=== PATIENT | male | born 1995 | race Caucasian/White ===

== ENCOUNTER → 2024-05-31 | Outpatient (CLI) | payer BC, SELFPAY ==
[2024-05-31 11:19] LABS: Collection Type, Urine Clean Catch; Squamous Epithelial Cell,Urine 0 /hpf (0-5)
[2024-05-31 11:39] LABS: Basophils % (Auto) 1 % (0-2.5); Eosinophils % (Auto) 1 % (0-10); Hematocrit 48.8 % (41.0-53.0); Hemoglobin 16.4 g/dL (13.5-16.0); Immature Granulocytes % (Auto) 0 % (0-0); Immature Granulocytes Auto 0.01 Thou/mm3 (0.00-0.00); Lymphocytes # (Auto) 1.1 Thou/mm3 (1.0-4.8); Lymphocytes % (Auto) 21 % (10-50); Mean Corpuscular HGB Conc 33.6 g/dl (31.0-37.0); Mean Corpuscular Hemoglobin 31.4 pg (25.0-35.0); Mean Corpuscular Volume 93 fL (80-100); Monocytes # (Auto) 0.6 Thou/mm3 (0.0-0.8); Monocytes % (Auto) 12 % (0-12); Neutrophils # (Auto) 3.4 Thou/mm3 (1.8-7.7); Neutrophils % (Auto) 65 % (37-80); Nucleated Red Blood Cell % 0 /100 WBC (0); Platelet Count 221 Thou/mm3 (140-440); RDW Standard Deviation 43.6 fL (35.1-43.9); Red Blood Count 5.23 Miln/mm3 (4.50-5.90); White Blood Count 5.2 Thou/mm3 (3.8-10.6)
[2024-05-31 11:56] LABS: Amorphous Crystals,Urine Present (Absent); Bilirubin,Urine Negative (Negative); Blood,Urine Negative (Negative); Color,Urine Yellow (Lt Yel-Yel); Culture Indicated,Urine Not Indicated; Glucose, Urine Negative (Negative); Ketones,Urine Trace (Negative); Leukocyte Esterase,Urine Negative (Negative); Nitrite,Urine Negative (Negative); PH,Urine 5.5 (5.0-7.0); Protein,Urine 1+ (Neg - Trace); RBC,Urine 2 /hpf (0-3); Specific Gravity,Urine 1.027 (1.001-1.035); Transitional Epi Cells,Urine 1 /hpf (0-5); WBC,Urine 3 /hpf (0-5)
[2024-05-31 11:58] LABS: Hepatitis B Surface Ab Reactive (Immune) (Immune); Vitamin D 25 Hydroxy Total 26.4 ng/mL (7.3-40.2)
[2024-05-31 11:59] LABS: Alanine Aminotransferase 26 U/L (10-49); Albumin, Serum 4.5 gm/dL (3.5-5.0); Albumin/Globulin Ratio 2.1 (1.2-2.2); Alkaline Phosphatase 68 U/L (46-116); Anion Gap 8 (7-16); Aspartate Amino Transferase 22 U/L (0-34); BUN/Creatinine Ratio 10 Ratio (12-20); Bilirubin,Total 1.1 mg/dL (0.3-1.2); Blood Urea Nitrogen 11 mg/dL (9-23); Calcium 9.8 mg/dL (8.3-10.6); Calcium (Corrected) 9.8 mg/dL (8.5-10.1); Carbon Dioxide 28.7 mMol/L (20.0-31.0); Cardiac Risk Estimate 4.2 RATIO (4.0-6.7); Chloride 104 mMol/L (98-107); Cholesterol 160 mg/dL (132-200); Creatinine (Component) 1.1 mg/dL (0.6-1.3); Globulin 2.1 gm/dL (2.3-3.5); Glucose 95 mg/dL (74-106); HDL Cholesterol 38 mg/dL (40-60); LDL Cholesterol,Calculated 101 mg/dL (0-130); Osmolality,Calculated 280 (275-295); Potassium 4.6 mMol/L (3.4-5.1); Sodium 141 mMol/L (136-145); Thyroid Stimulating Hormone 1.49 uIU/mL (0.55-4.78); Total Protein 6.6 gm/dL (5.7-8.2); Triglycerides 103 mg/dL (30-150); eGFR > 60 See Note
[2024-05-31 12:10] LABS: Clarity,Urine Hazy (Clear/Hazy)
[2024-06-06 06:54] LABS: Measles Antibody (IgG) <13.50 AU/mL; Mumps Virus Antibody (IgG) <9.00 AU/mL
== END | disposition home or self-care (01) ==
PROVIDERS: PCP Family Medicine; Referring Provider Physician Assistant; Visit Provider Physician Assistant
DX: Z00.00 Encounter for general adult medical examination without abnormal findings (principal)
CPT/HCPCS: 36415; 80053; 80061; 81001; 82306; 84443; 85025; 86706; 86735; 86762; 86765; 86787

== ENCOUNTER → 2024-07-04 | Outpatient (CLI) | payer BC, SELFPAY ==
[2024-07-04 11:22] LABS: Basophils % (Auto) 1 % (0-2.5); Eosinophils # (Auto) 0.1 Thou/mm3 (0.0-0.5); Eosinophils % (Auto) 1 % (0-10); Hematocrit 49.4 % (41.0-53.0); Hemoglobin 16.9 g/dL (13.5-16.0); Immature Granulocytes % (Auto) 0 % (0-0); Immature Granulocytes Auto 0.01 Thou/mm3 (0.00-0.00); Lymphocytes # (Auto) 1.7 Thou/mm3 (1.0-4.8); Lymphocytes % (Auto) 30 % (10-50); Mean Corpuscular HGB Conc 34.2 g/dl (31.0-37.0); Mean Corpuscular Hemoglobin 31.6 pg (25.0-35.0); Mean Corpuscular Volume 92 fL (80-100); Monocytes # (Auto) 0.8 Thou/mm3 (0.0-0.8); Monocytes % (Auto) 15 % (0-12); Neutrophils % (Auto) 53 % (37-80); Nucleated Red Blood Cell % 0 /100 WBC (0); Platelet Count 223 Thou/mm3 (140-440); RDW Standard Deviation 41.5 fL (35.1-43.9); Red Blood Count 5.35 Miln/mm3 (4.50-5.90); White Blood Count 5.6 Thou/mm3 (3.8-10.6)
[2024-07-04 11:34] LABS: Collection Type, Urine Clean Catch; Squamous Epithelial Cell,Urine 0 /hpf (0-5)
[2024-07-04 12:08] LABS: Bacteria,Urine Rare; Bilirubin,Urine Negative (Negative); Blood,Urine Negative (Negative); Clarity,Urine Clear (Clear/Hazy); Color,Urine Yellow (Lt Yel-Yel); Culture Indicated,Urine Not Indicated; Glucose, Urine Negative (Negative); Ketones,Urine Negative (Negative); Leukocyte Esterase,Urine Negative (Negative); Nitrite,Urine Negative (Negative); PH,Urine 6.5 (5.0-7.0); Protein,Urine Trace (Neg - Trace); RBC,Urine 4 /hpf (0-3); Specific Gravity,Urine 1.026 (1.001-1.035); Urobilinogen,Urine Negative mg/dL (0.0-1.0); WBC,Urine 2 /hpf (0-5)
== END | disposition home or self-care (01) ==
LOC: COPL 10:35
PROVIDERS: PCP Family Medicine; Referring Provider Physician Assistant; Visit Provider Physician Assistant
DX: D58.2 Other hemoglobinopathies (principal); R80.9 Proteinuria, unspecified
CPT/HCPCS: 36415; 81001; 85025

== ENCOUNTER → 2024-10-11 | Outpatient (CLI) | payer BC, SELFPAY ==
[2024-10-11 15:00] LABS: Collection Type, Urine Clean Catch; Squamous Epithelial Cell,Urine 0 /hpf (0-5)
[2024-10-11 16:08] LABS: Basophils % (Auto) 1 % (0-2.5); Eosinophils # (Auto) 0.1 Thou/mm3 (0.0-0.5); Eosinophils % (Auto) 1 % (0-10); Hematocrit 46.1 % (41.0-53.0); Hemoglobin 15.7 g/dL (13.5-16.0); Immature Granulocytes % (Auto) 0 % (0-0); Immature Granulocytes Auto 0.02 Thou/mm3 (0.00-0.00); Lymphocytes # (Auto) 2.2 Thou/mm3 (1.0-4.8); Lymphocytes % (Auto) 35 % (10-50); Mean Corpuscular HGB Conc 34.1 g/dl (31.0-37.0); Mean Corpuscular Hemoglobin 31.7 pg (25.0-35.0); Mean Corpuscular Volume 93 fL (80-100); Monocytes # (Auto) 0.7 Thou/mm3 (0.0-0.8); Monocytes % (Auto) 11 % (0-12); Neutrophils # (Auto) 3.3 Thou/mm3 (1.8-7.7); Neutrophils % (Auto) 52 % (37-80); Nucleated Red Blood Cell % 0 /100 WBC (0); Platelet Count 240 Thou/mm3 (140-440); RDW Standard Deviation 39.8 fL (35.1-43.9); Red Blood Count 4.96 Miln/mm3 (4.50-5.90); White Blood Count 6.4 Thou/mm3 (3.8-10.6)
[2024-10-11 16:09] LABS: Bilirubin,Urine Negative (Negative); Blood,Urine Negative (Negative); Clarity,Urine Clear (Clear/Hazy); Color,Urine Lt-Yellow (Lt Yel-Yel); Culture Indicated,Urine Not Indicated; Glucose, Urine Negative (Negative); Ketones,Urine Negative (Negative); Leukocyte Esterase,Urine Negative (Negative); Nitrite,Urine Negative (Negative); PH,Urine 6.5 (5.0-7.0); Protein,Urine Negative (Neg - Trace); RBC,Urine 1 /hpf (0-3); Specific Gravity,Urine 1.016 (1.001-1.035); Urobilinogen,Urine Negative mg/dL (0.0-1.0); WBC,Urine 1 /hpf (0-5)
== END | disposition home or self-care (01) ==
PROVIDERS: PCP Family Medicine; Referring Provider Physician Assistant; Visit Provider Physician Assistant
DX: D58.2 Other hemoglobinopathies (principal); R31.9 Hematuria, unspecified
CPT/HCPCS: 36415; 81001; 85025

== ENCOUNTER 2024-11-23 09:31 | Emergency (ER) | payer BC, SELFPAY ==
[2024-11-23 09:37] VITALS: BP 138/87; PULSE 88; RESP 16; TEMP 37.1; O2SAT 97; BMI 30.5
--- NOTE | 2024-11-23 09:52 | XR_ITS ---
Examination: CT brain head without contrast. 2-D sagittal coronal reconstructions Date and time of exam:November 23, 2024 1032 hours INDICATIONS: Injury to the head and left eye today, head pain eye pain CTDI: vol (mGy):54.1 DLP: (mGycm):1098 Technique: Multiple CT axial sections of the brain have been obtained, 5 mm slice thickness. Contrast has not been administered. 2-D sagittal, coronal reconstructions have been obtained Low dose protocols were performed. One or more of the following dose reduction techniques were used; automated exposure control, adjustment of the mA and/or KV according to patient size, use of iterative reconstruction technique. Findings: No significant ventricular enlargement. Intra-axial or extra-axial hemorrhage density is not seen. No mass effect or midline shift Basal cisterns are not remarkable. Fourth ventricle is midline. Cranial vault intact. Impression: Negative for acute hemorrhage, mass effect or midline shift Please see the CT maxillofacial report today
--- NOTE | 2024-11-23 09:52 | XR_ITS ---
Examination: CT maxillofacial, without intravenous contrast. 2-D sagittal reconstructions. 3-D reconstructions. Date and time of exam:November 23, 2024 1032 hours INDICATIONS: Injury to the face today with left eye bruising and laceration CTDI: vol (mGy):19.7 DLP: (mGycm):103 Technique: Multiple axial images of maxillofacial region, 3.0 mm slice thickness. 2-D sagittal and coronal reconstructions. 3-D reconstructions. Low dose protocols were performed. One or more of the following dose reduction techniques were used; automated exposure control, adjustment of the mA and/or KV according to patient size, use of iterative reconstruction technique. Findings: Frontal bone intact Acute fracture medial wall left orbit axial image 89 Blowout fracture left inferior posterior orbital rim Air in the left orbit medially and posteriorly The optic nerves appearance intact Fractures lateral wall left maxillary antrum axial image 79 Maxilla mandible intact Blood in the left maxillary antrum The optic globes appear intact IMPRESSION: Acute fracture medial wall left orbit Blowout fracture left inferior posterior orbital rim Fractures lateral wall left maxillary antrum Blood in the left maxillary antrum Optic globes appear intact
--- NOTE | 2024-11-23 10:56 | PD.EDRME ---
Rapid Medical Screening Exam RME Arrival date/time: 11/23/24 09:31 29-year-old male presents to the Emergency Department today stating that he injured himself yesterday. Patient has laceration above the left eyebrow and left-sided facial pain Chief Complaint: Wound/Laceration Time Seen by Provider: 11/23/24 09:38 Vital signs: Vital Signs Temperature 98.7 F 11/23/24 09:37 Pulse Rate 88 11/23/24 09:37 Respiratory Rate 16 11/23/24 09:37 Blood Pressure 138/87 H 11/23/24 09:37 Pulse Oximetry (%) 97 11/23/24 09:37 Oxygen Delivery Method Room Air 11/23/24 09:37
[2024-11-23 11:08] VITALS: BP 132/71; PULSE 86; RESP 18; O2SAT 98
[2024-11-23 11:16] VITALS: BMI 29.6
[2024-11-23] MEDS: LIDOCAINE HCL 1% 20 ML VIAL INFL (11:26)
--- NOTE | 2024-11-23 11:45 | EDNOTE_ITS ---
ED Wound/Laceration-RME/HPI General Chief Complaint: Wound/Laceration Stated Complaint: lac to l eyebrow, bruising to l eye from car door Time Seen by Provider: 11/23/24 09:38 Arrival date/time: 11/23/24 09:31 29-year-old male presents to the ED with a complaint of left eyelid swelling and laceration secondary to an injury he sustained last night. He denies any loss of consciousness, neck pain, or visual changes. He did not come to the ED last night because he did not feel his injury was too bad however when he woke up this morning and saw the amount of bruising and swelling he became concerned. RME / HPI RME / HPI narrative: 11/23/24 09:31 29-year-old male presents to the Emergency Department today stating that he injured himself yesterday. Patient has laceration above the left eyebrow and left-sided facial pain Related Data Previous Rx's ?Medication ?Instructions ?Recorded cephalexin 500 mg capsule 500 mg PO BID Skin wound 5 d ays 11/23/24 #10 caps Allergies Allergy/AdvReac Type Severity Reaction Status Date / Time No Known Allergies Allergy Verified 11/23/24 09:32 Course Course Course Narrative: 6 subcutaneous sutures with 4-0 Vicryl 12 skin sutures with 5-0 Prolene with good wound edge approximation. Patient t olerated procedure well. Quality Measures none Orders Category Date Time Status Set Up Suture Tray STAT Care 11/23/24 09:52 Active Visual Acuity NOW Care 11/23/24 12:37 Active Wound Care NOW Care 11/23/24 09:[address] facial bones wo con Stat Exams 11/23/24 09:[address] head/brain wo con Stat Exams 11/23/24 09:52 Completed Lidocaine 1% 20 ml [Xylocaine 1% 20 ML] Med 11/23/24 09:52 Discontinued 20 ml INFL X1 ONE TET,DIP/PERT AC (Adult)-Tdap [Boostrix Adult (Tdap) Med 11/23/24 09:52 Discontinued Vacc] 0.5 ml IMI .ONCE ONE Vital Signs Vital signs: Vital Signs Temperature 98.7 F 11/23/24 09:37 Pulse Rate 88 11/23/24 09:37 Respiratory Rate 16 11/23/24 09:37 Blood Pressure 138/87 H 11/23/24 09:37 Pulse Oximetry (%) 97 11/23/24 09:37 Oxygen Delivery Method Room Air 11/23/24 09:37 Wound / Laceration Patient data External records reviewed:: None Clinical information provided by:: patient Social determinants that could affect healthcare access:: none Patient has the following chronic illnesses:: N/A How is presenting disease/condition affected by chronic disease/condition?: no chronic disease Evaluation data The following diagnostics were reviewed and interpreted by me:: radiology exam(s) Lab and/or radiology exams considered but not ordered:: N/A Medications / Prescriptions Medication administrations:: Medication Administration History Discontinued Medications Diphtheria/Tetanus/Acell Pertussis (Diphth,Pertuss(Acell),Tet Vac 0.5 Ml Syr- Adult) 0.5 ml IMi .ONCE ONE Stop: 11/23/24 09:53 Last Admin: 11/23/24 11:23 Dose: Not Given Documented By: GM Non-Admin Reason: Patient Refused Comments: PT REFUSED; PER PT, I JUST GPT ALL MY SHOTS ON JUNE 2024. Lidocaine HCl (Lidocaine Hcl 1% 20 Ml Vial) 20 ml INFL X1 ONE Stop: 11/23/24 09:53 Last Admin: 11/23/24 11:26 Dose: 20 ml Documented By: Comments: GIVEN TO DR. NARAYAN AT THIS TIME. Discharge Plan Plan Patient Disposition: HOME (Self Care) Discharge Disposition comment: Stable and improved Prescriptions/Referrals Prescriptions/Med Rec: New cephalexin 500 mg capsule 500 mg PO BID 5 Days Qty: 10 0RF Referrals: Howard Bridges MD [Primary Care Provider] - In 1 week Problem List Clinical Impression: Laceration, Orbital floor fracture Patient/Caregiver Discharge Instructions Education Materials: ED Facial Fracture, ED Laceration Face Suture or Tape ... Additional Instructions: Keep the wound clean and dry and do not expose it to excessive amounts of moisture. Cleanse daily and apply antibiotic ointment. Follow-up with your primary care physician in 24 to 48 hours for referral to an nuclear powerplant mechanic helper regarding the facial fractur. Take the antibiotics as prescribed and complete the course. Return to the ED for any new or worsening symptoms. Print Language: Togolese Stand Alone Forms: Estela Award Info., Patient Portal Info Letter PA/REPAIRER KILN CAR Supervising Physician PA/VANESSA Supervising Physician: Dr Narayan
[2024-11-23 12:18] VITALS: BP 135/61; PULSE 76; RESP 17; TEMP 37.1; O2SAT 95
[2024-11-23 14:32] VITALS: BP 135/87; PULSE 66; RESP 18; TEMP 37; O2SAT 96
--- NOTE | 2024-11-23 14:33 | PC.NURSE ---
JASPER DUENAS AT BEDSIDE SUTURING PT'S LAC TO L EYEBROW.
[2024-11-23 15:58] VITALS: BP 168/96; PULSE 59; RESP 16; TEMP 36.9; O2SAT 96
== END 2024-11-23 16:07 | disposition home or self-care (01) ==
PROVIDERS: Emergency Provider Emergency Medicine; PCP Family Medicine
DX: S01.112A Laceration without foreign body of left eyelid and periocular area, initial encounter (principal); S02.32XA Fracture of orbital floor, left side, initial encounter for closed fracture; X58.XXXA Exposure to other specified factors, initial encounter
CPT/HCPCS: 12011; 70450; 70486; 99284; J3490

== ENCOUNTER → 2025-05-25 | Outpatient (CLI) | payer BC, SELFPAY ==
--- NOTE | 2025-05-25 16:28 | XR_ITS ---
EXAMINATION: PA lateral chest 2 views TECHNIQUE: Upright PA lateral chest 2 views Date and time: May 25, 2025, 1637 hours COMPARISON: 03/02/2023 INDICATIONS: +PPD skin test this week. FINDINGS: Normal heart size. Lungs are clear. Osseous structures are intact. IMPRESSION: No active disease No radiographic findings of active tuberculosis
== END | disposition home or self-care (01) ==
LOC: CDIM 16:24
PROVIDERS: Referring Provider Student in an Organized Health Care Education/Training Program; Visit Provider Student in an Organized Health Care Education/Training Program
DX: R76.11 Nonspecific reaction to tuberculin skin test without active tuberculosis (principal)
CPT/HCPCS: 71046

== ENCOUNTER → 2025-06-07 | Outpatient (CLI) | payer BC, SELFPAY ==
[2025-06-07 09:30] LABS: Quantiferon-TB* See Sep Rpt
== END | disposition home or self-care (01) ==
LOC: COPL 09:15
PROVIDERS: PCP Student in an Organized Health Care Education/Training Program; Referring Provider Student in an Organized Health Care Education/Training Program; Visit Provider Student in an Organized Health Care Education/Training Program
DX: R76.11 Nonspecific reaction to tuberculin skin test without active tuberculosis (principal)
CPT/HCPCS: 86480

== ENCOUNTER → 2025-06-20 | Outpatient (CLI) | payer BC, SELFPAY ==
[2025-06-20 10:28] LABS: Basophils # (Auto) 0.0 Thou/mm3 (0.0-0.2); Basophils % (Auto) 1 % (0-2.5); Eosinophils # (Auto) 0.1 Thou/mm3 (0.0-0.5); Eosinophils % (Auto) 2 % (0-10); Hematocrit 45.9 % (41.0-53.0); Hemoglobin 15.6 g/dL (13.5-16.0); Immature Granulocytes Auto 0.01 Thou/mm3 (0.00-0.00); Lymphocytes # (Auto) 1.5 Thou/mm3 (1.0-4.8); Lymphocytes % (Auto) 35 % (10-50); Mean Corpuscular HGB Conc 34.0 g/dl (31.0-37.0); Mean Corpuscular Hemoglobin 31.5 pg (25.0-35.0); Mean Corpuscular Volume 93 fL (80-100); Monocytes # (Auto) 0.4 Thou/mm3 (0.0-0.8); Monocytes % (Auto) 10 % (0-12); Neutrophils # (Auto) 2.2 Thou/mm3 (1.8-7.7); Neutrophils % (Auto) 52 % (37-80); Nucleated Red Blood Cell # 0.00 Thou/mm3 (0.00-0.00); Nucleated Red Blood Cell % 0 /100 WBC (0); Platelet Count 246 Thou/mm3 (140-440); RDW Standard Deviation 40.0 fL (35.1-43.9); Red Blood Count 4.95 Miln/mm3 (4.50-5.90); White Blood Count 4.2 Thou/mm3 (3.8-10.6)
[2025-06-20 10:54] LABS: Alanine Aminotransferase 20 U/L (10-49); Albumin, Serum 4.6 gm/dL (3.5-5.0); Albumin/Globulin Ratio 2.1 (1.2-2.2); Alkaline Phosphatase 53 U/L (46-116); Anion Gap 9 (7-16); Aspartate Amino Transferase 26 U/L (0-34); BUN/Creatinine Ratio 10 Ratio (12-20); Bilirubin,Total 0.5 mg/dL (0.3-1.2); Blood Urea Nitrogen 11 mg/dL (9-23); Calcium 9.5 mg/dL (8.3-10.6); Calcium (Corrected) 9.5 mg/dL (8.5-10.1); Carbon Dioxide 29.9 mMol/L (20.0-31.0); Chloride 105 mMol/L (98-107); Creatinine (Component) 1.1 mg/dL (0.6-1.3); Globulin 2.2 gm/dL (2.3-3.5); Glucose 88 mg/dL (74-106); Osmolality,Calculated 285 (275-295); Potassium 4.6 mMol/L (3.4-5.1); Sodium 144 mMol/L (136-145); Total Protein 6.8 gm/dL (5.7-8.2); eGFR > 60 See Note
== END | disposition home or self-care (01) ==
LOC: COPL 09:26
PROVIDERS: PCP Internal Medicine; Referring Provider Internal Medicine; Visit Provider Internal Medicine
DX: Z22.7 Latent tuberculosis (principal)
CPT/HCPCS: 36415; 80053; 85025